=== PATIENT | male | born 1965 | race Caucasian/White ===

== ENCOUNTER → 2016-07-01 | Outpatient (REF) | payer OTHER ==
[2016-07-08 10:05] LABS: HEPATITIS B CORE ABY IGM Negative; HEPATITIS B SURFACE ANTIGEN C Negative
== END ==
LOC: LAB 15:30 → CLAB.CORPH 15:30 → EDSTATUS 07-03 10:37
PROVIDERS: ATTEND Nurse Practitioner Family
DX: Z09 Encounter for follow-up examination after completed treatment for conditions other than malignant neoplasm (principal)
CPT/HCPCS: 86704; 86706; 86803; 87340

== ENCOUNTER → 2016-08-05 | Outpatient (REF) | payer OTHER | LOC: LAB 14:50 → EDSTATUS 08-07 12:03 | PROVIDERS: ATTEND Nurse Practitioner Family | DX: Z77.21 Contact with and (suspected) exposure to potentially hazardous body fluids (principal) | CPT/HCPCS: 36415; 86803 ==

== ENCOUNTER → 2016-10-02 | Outpatient (REF) ==
[~2016-10-02] MED LIST: AC500T PO; ALLP300T PO; CEFD300C9 PO; CLIN-78 PO; DULO60CA7 PO; ERYT250C61 PO; HYDR-3702 PO; HYDR-3881 PO; LRT10T PO; MELO15TA14 PO; NFNEB10T PO; PRED10TA PO; SPRN25T PO; UBID100C8 PO
== END ==
LOC: LAB 15:21 → CLAB.CORPH 15:23
PROVIDERS: ATTEND Nurse Practitioner Family
DX: Z77.21 Contact with and (suspected) exposure to potentially hazardous body fluids (principal)
CPT/HCPCS: 86803